=== PATIENT | female | born 1965 | race Caucasian/White ===

== ENCOUNTER 2018-12-18 08:04 | Day surgery (SDC) | payer BC ==
[~2018-12-18 08:04] MED LIST: Lactated Ringers 1,000 ML IV SCH; Lidocaine 1%/Sod Bicarbonate in NS 8.4% 1 ML Syringe IDERM PRN; Sodium Chloride 0.9% 10 ML Syringe FLUSH PRN
--- NOTE | 2018-12-18 08:04 | PCM.PREANE ---
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 No deficits noted from this episode years ago.) Cardiovascular: No Symptoms Gastrointestinal: No Symptoms Neurological: No Symptoms (Acute lower back pain with right sided sciatica/ on and off-spinal stenosis), Numbness (right hand numbness ?? carpal tunnel syndrome per patient.), Seizure (history of seizure disorder-age 13 none since.) Other: Reports: Easy Bruising, Depression, Anxiety - Physical Assessment NPO Status Date: 12/17/18 NPO Status Time: 23:00 Pulse: 79 O2 Sat by Pulse Oximetry: 96 Respiratory Rate: 16 Blood Pressure: 123/71 Temperature: 36.7 C Height: 1.7 m Weight: 85.729 kg ASA Class: 2 Mental Status: Alert & Oriented x3 Airway Class: Mallampati = 2 Dentition: Reports: Normal Dentition, Missing Tooth/Teeth, Caries Thyro-Mental Finger Breadths: 3 Mouth Opening Finger Breadths: 3 ROM/Head Extension: Full Lungs: Clear to Auscultation, Normal Respiratory Effort Cardiovascular: Regular Rate, Regular Rhythm, No Murmurs - Allergies Allergies/Adverse Reactions: Allergies Allergy/AdvReac Type Severity Reaction Status Date / Time No Known Allergies Allergy Verified 12/17/18 12:17 - Anesthesia Plan Pre-Op Medication Ordered: None - Acknowledgements Anesthesia Type Planned: MAC Pt an Appropriate Candidate for the Planned Anesthesia: Yes Alternatives and Risks of Anesthesia Discussed w Pt/Guardian: Yes Pt/Guardian Understands and Agrees with Anesthesia Plan: Yes PreAnesthesia Questionnaire HEENT History: Reports: Impaired Vision Cardiovascular History: Reports: None Respiratory History: Reports: Other (See Below) Other Respiratory History: 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13 Genitourinary History: Reports: None SCRATCH BRUSHER History: Reports: None Musculoskeletal History: Reports: Back Pain, Chronic Neurological History: Reports: Seizure, Other (See Below) Other Neuro History: leon syndrome Psychiatric History: Reports: Anxiety, Depression Endocrine/Metabolic History: Reports: None Hematologic History: Reports: None Immunologic History: Reports: None Oncologic (Cancer) History: Reports: Cervix Dermatologic History: Reports: None - Past Surgical History Head Surgeries/Procedures: Reports: None HEENT Surgical History: Reports: Tonsillectomy Cardiovascular Surgical History: Reports: None Respiratory Surgical History: Reports: None GI Surgical History: Reports: Colonoscopy Female Surgical History: Reports: Cervical Cryotherapy, Hysterectomy, Oophorectomy, Tubal Ligation Male Surgical History: Reports: None Endocrine Surgical History: Reports: None Neurological Surgical History: Reports: None Musculoskeletal Surgical History: Reports: None Oncologic Surgical History: Reports: None Dermatological Surgical History: Reports: None - SUBSTANCE USE Smoking Status *Q: Former Smoker Recreational Drug Use History: No - HOME MEDS Home Medications: Home Meds Varenicline Tartrate [Chantix] 1 dose PO BID 12/17/18 [History] buPROPion HCl [Wellbutrin SR] 200 mg PO BID 12/17/18 [History] - CURRENT (IN HOUSE) MEDS Current Meds: Current Medications Lactated Ringer's (Ringers, Lactated) 1,000 mls @ 125 mls/hr IV ASDIRECTED JOSELIN Stop: 12/18/18 23:00 Lidocaine/Sodium Bicarbonate (Buffered Lidocaine 1% In Ns 8.4%) 0.25 ml IDERM ONETIME PRN PRN Reason: Prior to IV Start Stop: 12/18/18 23:00 Sodium Chloride (Saline Flush) 10 ml FLUSH ASDIRECTED PRN PRN Reason: Keep Vein Open Stop: 12/18/18 23:00 Discontinued Medications Lactated Ringer's (Ringers, Lactated) 1,000 mls @ 125 mls/hr IV ASDIRECTED JOSELIN Stop: 11/13/18 23:00 Lidocaine/Sodium Bicarbonate (Buffered Lidocaine 1% In Ns 8.4%) 0.25 ml IDERM ONETIME PRN PRN Reason: Prior to IV Start Stop: 11/13/18 18:00 Sodium Chloride (Saline Flush) 10 ml FLUSH ASDIRECTED PRN PRN Reason: Keep Vein Open Stop: 11/13/18 18:00
[2018-12-18] MEDS ORDERED: Propofol 200 MG/20 ML SDV ONE ×2 (08:30→08:57)
[2018-12-18] MEDS ORDERED: fentaNYL 100 MCG/2 ML SDV ONE (08:41)
[2018-12-18] MEDS ORDERED: Lidocaine 1% 4 ML ONE (08:41)
--- NOTE | 2018-12-18 09:10 | PCM48HPAN ---
Post Anesthesia Note - EVALUATION WITHIN 48HRS OF ANESTHETIC Vital Signs in Normal Range: Yes Patient Participated in Evaluation: Yes Respiratory Function Stable: Yes Airway Patent: Yes Cardiovascular Function Stable: Yes Hydration Status Stable: Yes Pain Control Satisfactory: Yes Nausea and Vomiting Control Satisfactory: Yes Mental Status Recovered: Yes Pulse Rate: 79 Resp Rate: 16 Temperature: 36.7 C Blood Pressure: 123/71 - COMMENTS/OBSERVATIONS Free Text/Narrative:: no anesthesia complications noted
--- NOTE | 2018-12-18 13:48 | OR ---
DATE OF OPERATION: 12/18/2018 SURGEON: Channing Maloney MD PREOPERATIVE DIAGNOSIS: Screening colonoscopy. POSTOPERATIVE DIAGNOSIS: Screening colonoscopy. OPERATION PERFORMED: Total colonoscopy with snare excision of sigmoid polyp. ANESTHESIA: MAC. SPECIMEN: Sigmoid polyp. INDICATION FOR PROCEDURE: This 53-year-old female presents for screening colonoscopy. DESCRIPTION OF PROCEDURE: After adequate preparation, a colonoscope was inserted into the rectum. This was easily passed all the way to the cecum. Confirmation of the cecum was made by visualization of the ileocecal valve, palpation in the right lower quadrant, and light shining through the right lower quadrant. The bowel prep was excellent. A photograph of the ileocecal valve was taken. On withdrawal of the scope, the only abnormality noted was a small sessile polyp 3-4 mm in the sigmoid polyp. A small snare was placed around and clipped off. The polyp was retrieved for pathological evaluation. The rest of the colon exam was normal. Anal and rectal exam was also normal. Air was suctioned from the colon and the scope removed. ESTIMATED BLOOD LOSS: MMODAL /[id number]
== END 2018-12-18 10:10 | disposition home or self-care (01) ==
LOC: JD.SDS 08:04
PROVIDERS: ATTEND Surgery
DX: Z12.11 Encounter for screening for malignant neoplasm of colon (principal); D12.5 Benign neoplasm of sigmoid colon; F32.9 Major depressive disorder, single episode, unspecified; F41.9 Anxiety disorder, unspecified; M54.41 Lumbago with sciatica, right side; Z87.891 Personal history of nicotine dependence; Z80.0 Family history of malignant neoplasm of digestive organs; Z79.899 Other long term (current) drug therapy
CPT/HCPCS: 45385; J2001; J2704; J3010; J7120